=== PATIENT | female | born 1955 | race Caucasian/White ===

== ENCOUNTER 2017-10-04 21:42 | Emergency (ER) | payer OTHER ==
[~2017-10-04] VITALS: Ht 167.6 cm; Wt 89.8 kg
[2017-10-04] MEDS ORDERED: METFORMIN HCL500 MG (22:14)
[2017-10-05] MEDS ORDERED: CIPRO500 MG PO (02:27)
[2017-10-05] MEDS ORDERED: ULTRACET PO (02:27)
[2017-10-05] MEDS ORDERED: INTESTINEX680 M1 PO (02:27)
[2017-10-05] MEDS ORDERED: FLAGYL500MG PO (02:27)
== END 2017-10-05 02:28 | disposition home or self-care (01) ==
LOC: ER 21:42
DX: K57.32 Diverticulitis of large intestine without perforation or abscess without bleeding (principal)